=== PATIENT | male | born 1955 | race Caucasian/White ===

== ENCOUNTER 2020-09-20 17:16 | Emergency (ER) | payer BC, OTHER ==
[~2020-09-20] VITALS: Ht 203.2 cm; Wt 127.0 kg
[2020-09-20] MEDS ORDERED: MORPHINE SULFATE INJECTION 2 MG/ML SYRG IM ONE (21:45)
[2020-09-20] MEDS ORDERED: ONDANSETRON ODT 4 MG TAB PO ONE (21:45)
[2020-09-20 22:20] VITALS: BP 110/53
== END 2020-09-20 23:54 | disposition home or self-care (01) ==
LOC: ER 17:16
DX: S63.501A Unspecified sprain of right wrist, initial encounter (principal); S86.911A Strain of unspecified muscle(s) and tendon(s) at lower leg level, right leg, initial encounter; S83.91XA Sprain of unspecified site of right knee, initial encounter; S30.0XXA Contusion of lower back and pelvis, initial encounter; W18.39XA Other fall on same level, initial encounter; Y93.89 Activity, other specified; Y92.89 Other specified places as the place of occurrence of the external cause; Y99.8 Other external cause status
CPT/HCPCS: 29125; 29505; 72070; 73070; 73110; 73560; 96372; 99284; J2270; Q0162

== ENCOUNTER 2023-01-21 20:49 | Inpatient (IN) | payer MEDICARE, OTHER ==
[~2023-01-21] VITALS: Ht 193 cm; Wt 122.6 kg
[2023-01-21 21:25] LABS: Basophils # (auto) 0 10 ^3/uL (0-0.2); Eosinophils # (auto) 0.3 10 ^3/uL (0-0.8); Lymphocytes # (auto) 1.6 10 ^3/uL (0.4-5.4); Nucleated Red Blood Cells % 0.1 %
[2023-01-21 21:27] LABS: Basophils % (auto) 0.5 % (0.0-2.0); Eosinophils % (auto) 4.2 % (0.0-7.0); Hematocrit 38.4 % (41.0-53.0); Hemoglobin 13.1 g/dL (13.5-17.5); Lymphocytes % (auto) 24.9 % (10.0-50.0); Mean Corpuscular Hemoglobin 35.7 pg (28.0-32.0); Mean Corpuscular Volume 105.1 fL (80.0-100.0); Monocytes # (auto) 0.6 10 ^3/uL (0-1.3); Neutrophils # (auto) 3.9 10 ^3/uL (1.6-8.6); Neutrophils % (auto) 60.4 % (37.0-80.0); Red Blood Cells 3.65 10^6/uL (4.5-5.90); Red Cell Distribution Width 12.7 % (11.8-14.3); White Blood Cell 6.4 10^3/uL (4.4-10.8)
[2023-01-21 21:41] LABS: Potassium 4.6 mmol/L (3.5-5.1)
[2023-01-21 21:44] LABS: BUN/Creatinine Ratio 10.2 (10.0-20.0); INR 1.09 (0.9-1.15); Partial Thromboplastin Time 32.7 SEC (24.5-34.5)
[2023-01-21 21:46] LABS: Bilirubin, Total 0.6 mg/dL (0.2-1.0); Total Protein 5.7 g/dL (6.4-8.2)
[2023-01-21 22:00] VITALS: O2SAT 95
[2023-01-22] MEDS ORDERED: SODIUM CHLORIDE 0.9% 1,000 ML IV ONE (00:15)
[2023-01-22] MEDS ORDERED: KETOROLAC TROMETH 30 MG/ML 1ML VIAL IV ONE (00:15)
[2023-01-22] MEDS ORDERED: NEOMYCIN-BACITRACIN-POLYM UNITDOSE PKG TOP OINT TOP ONE (01:30)
[2023-01-22 02:25] LABS: Urine WBC None Seen /hpf (0 - 3)
[2023-01-22] MEDS ORDERED: MORPHINE SULFATE INJ 2 MG/ml SYRG IV PRN (02:30)
[2023-01-22] MEDS ORDERED: ONDANSETRON HCL 4 MG/2 ML VIAL IV PRN (02:30)
[2023-01-22] MEDS ORDERED: DOCUSATE SOD 100 MG CAP PO PRN (02:30)
[2023-01-22] MEDS ORDERED: NITROGLYCERIN 0.4 MG SL TAB SL PRN (02:30)
[2023-01-22] MEDS ORDERED: ACETAMINOPHEN 325 MG TAB PO PRN (02:30)
[2023-01-22 02:37] LABS: Urine Bacteria NONE SEEN /hpf (None Seen); Urine Blood Negative /uL (Negative); Urine Specific Gravity 1.003 (1.001-1.035)
[2023-01-22] MEDS: MORPHINE SULFATE INJ 2 MG/ml SYRG IV PRN ×2 (02:41→18:03)
[2023-01-22] MEDS: SODIUM CHLORIDE 0.9% 1,000 ML IV SCH ×2 (02:41→21:49)
[2023-01-22 05:54] LABS: Basophils # (auto) 0 10 ^3/uL (0-0.2); Eosinophils # (auto) 0.2 10 ^3/uL (0-0.8); Eosinophils % (auto) 4.6 % (0.0-7.0); Hemoglobin 13.2 g/dL (13.5-17.5); Lymphocytes # (auto) 1.2 10 ^3/uL (0.4-5.4); Neutrophils # (auto) 2.9 10 ^3/uL (1.6-8.6); Nucleated Red Blood Cells % 0.1 %; Red Cell Distribution Width 12.9 % (11.8-14.3)
[2023-01-22 05:57] LABS: Basophils % (auto) 0.3 % (0.0-2.0); Hematocrit 38.2 % (41.0-53.0); Lymphocytes % (auto) 24.7 % (10.0-50.0); Mean Corpuscular Hemoglobin 36.1 pg (28.0-32.0); Mean Corpuscular Hgb Conc. 34.5 g/dL (32.0-36.0); Mean Corpuscular Volume 104.6 fL (80.0-100.0); Monocytes # (auto) 0.6 10 ^3/uL (0-1.3); Monocytes % (auto) 11.3 % (0.0-12.0); Neutrophils % (auto) 59.1 % (37.0-80.0); Red Blood Cells 3.65 10^6/uL (4.5-5.90)
[2023-01-22] MEDS ORDERED: DABI150C5 PO (06:02)
[2023-01-22] MEDS ORDERED: HYDR-3682 PO (06:02)
[2023-01-22] MEDS ORDERED: ALPR0.5T7 PO (06:02)
[2023-01-22] MEDS ORDERED: DULO20CA PO (06:02)
[2023-01-22] MEDS ORDERED: TRAZ1TAB12 PO (06:02)
[2023-01-22] MEDS ORDERED: BENA40TA70 PO (06:02)
[2023-01-22] MEDS ORDERED: ALLO100T PO (06:02)
[2023-01-22] MEDS ORDERED: HYDR-4798 PO (06:02)
[2023-01-22] MEDS ORDERED: METO25TA5 PO (06:02)
[2023-01-22 06:20] LABS: Calcium 8.6 mg/dL (8.5-10.1); Potassium 4.4 mmol/L (3.5-5.1)
[2023-01-22 06:22] LABS: BUN/Creatinine Ratio 14.4 (10.0-20.0)
[2023-01-22 06:25] LABS: Bilirubin, Total 0.8 mg/dL (0.2-1.0)
[2023-01-22] MEDS: NEOMYCIN-BACITRACIN-POLYM 15GM TOP OINT TOP SCH ×3 (07:02→21:59)
[2023-01-22 07:15] VITALS: PULSE 70; RESP 15; O2SAT 95
[2023-01-22] MEDS: HYDROcodone-ACET 5/325MG TAB PO PRN (09:18)
[2023-01-22] MEDS: METOPROLOL TARTRATE 25 MG TAB PO SCH ×3 (10:20→22:00)
[2023-01-22 17:40] VITALS: PULSE 110; RESP 20; O2SAT 94
[2023-01-22 20:00] VITALS: BP 140/81; PULSE 68; PULSE 97; RESP 14; TEMP 98.4; O2SAT 97
[2023-01-22] MEDS: traZODone HCL 50 MG TAB PO SCH (21:42)
[2023-01-22] MEDS: ALPRAZolam 0.5 MG TAB PO SCH (21:42)
[2023-01-22 22:00] VITALS: BP 140/81; PULSE 68; RESP 14; TEMP 98.4; O2SAT 97
[2023-01-22 22:13] VITALS: BP 140/81; PULSE 68; RESP 14; TEMP 98.4
[2023-01-23] VITALS (8 sets, daily range): BP systolic 117–138; BP diastolic 67–83; PULSE 56–66; RESP 14–24; TEMP 96.7–98.4; O2SAT 98–100
[2023-01-23] MEDS: NEOMYCIN-BACITRACIN-POLYM 15GM TOP OINT TOP SCH ×3 (05:40→21:37)
[2023-01-23 06:02] LABS: Basophils # (auto) 0 10 ^3/uL (0-0.2); Eosinophils # (auto) 0.2 10 ^3/uL (0-0.8); Monocytes # (auto) 0.6 10 ^3/uL (0-1.3); Neutrophils # (auto) 3.3 10 ^3/uL (1.6-8.6); Nucleated Red Blood Cells % 0.1 %; White Blood Cell 5.4 10^3/uL (4.4-10.8)
[2023-01-23 06:05] LABS: Basophils % (auto) 0.6 % (0.0-2.0); Hematocrit 38.7 % (41.0-53.0); Hemoglobin 13.1 g/dL (13.5-17.5); Lymphocytes # (auto) 1.2 10 ^3/uL (0.4-5.4); Lymphocytes % (auto) 22.1 % (10.0-50.0); Mean Corpuscular Hemoglobin 35.5 pg (28.0-32.0); Mean Corpuscular Hgb Conc. 33.9 g/dL (32.0-36.0); Mean Corpuscular Volume 104.6 fL (80.0-100.0); Monocytes % (auto) 11.4 % (0.0-12.0); Neutrophils % (auto) 61.9 % (37.0-80.0)
[2023-01-23 06:15] LABS: Potassium 4.8 mmol/L (3.5-5.1)
[2023-01-23 06:25] LABS: Albumin 2.9 g/dL (3.4-5.0); BUN/Creatinine Ratio 13.2 (10.0-20.0); Bilirubin, Total 1.2 mg/dL (0.2-1.0); Total Protein 5.9 g/dL (6.4-8.2)
[2023-01-23] MEDS: DULoxetine HCL 30 MG CAP PO SCH (09:53)
[2023-01-23] MEDS: ALPRAZolam 0.5 MG TAB PO SCH ×2 (09:53→21:36)
[2023-01-23] MEDS: METOPROLOL TARTRATE 25 MG TAB PO SCH ×4 (09:54→21:44)
[2023-01-23] MEDS: MORPHINE SULFATE INJ 2 MG/ml SYRG IV PRN (10:03)
[2023-01-23] MEDS: SODIUM CHLORIDE 0.9% 1,000 ML IV SCH (12:31)
[2023-01-23] MEDS ORDERED: LORazepam 2MG/ML-1ML VIAL IV PRN (13:45)
[2023-01-23] MEDS: HYDROcodone-ACET 5/325MG TAB PO PRN (17:08)
[2023-01-23] MEDS: traZODone HCL 50 MG TAB PO SCH (21:36)
[2023-01-24] VITALS (7 sets, daily range): BP systolic 128–139; BP diastolic 77–84; PULSE 60–64; RESP 14–19; TEMP 98–98.4; O2SAT 96–99
[2023-01-24] MEDS: HYDROcodone-ACET 5/325MG TAB PO PRN ×3 (05:08→19:55)
[2023-01-24] MEDS: SODIUM CHLORIDE 0.9% 1,000 ML IV SCH (05:12)
[2023-01-24] MEDS: NEOMYCIN-BACITRACIN-POLYM 15GM TOP OINT TOP SCH ×3 (05:18→21:29)
[2023-01-24] MEDS: ALPRAZolam 0.5 MG TAB PO SCH ×2 (09:51→21:26)
[2023-01-24] MEDS: DULoxetine HCL 30 MG CAP PO SCH (09:51)
[2023-01-24] MEDS: METOPROLOL TARTRATE 25 MG TAB PO SCH ×2 (09:52→21:26)
[2023-01-24] MEDS ORDERED: ALLOPURINOL 100 MG TAB PO ONE (10:30)
[2023-01-24] MEDS ORDERED: LORazepam 2MG/ML-1ML VIAL IV PRN ×2 (10:30→22:15)
[2023-01-24] MEDS: FOLIC ACID 1 MG, MULTIPLE VITAMIN 10 ML, MAGNESIUM SULF SDV 50% 8 MEQ, THIAMINE INJ 100... INJ SCH ×5 (13:49)
[2023-01-24] MEDS: traZODone HCL 50 MG TAB PO SCH (21:26)
[2023-01-24] MEDS: DABIGATRAN 75 MG CAP PO SCH (21:26)
[2023-01-25] VITALS (7 sets, daily range): BP systolic 128–135; BP diastolic 74–90; PULSE 58–72; RESP 14–22; TEMP 97.8–98.5; O2SAT 96–100
[2023-01-25] MEDS: NEOMYCIN-BACITRACIN-POLYM 15GM TOP OINT TOP SCH ×3 (06:12→22:55)
[2023-01-25] MEDS: HYDROcodone-ACET 5/325MG TAB PO PRN (09:02)
[2023-01-25] MEDS: ALLOPURINOL 100 MG TAB PO SCH (11:09)
[2023-01-25] MEDS: METOPROLOL TARTRATE 25 MG TAB PO SCH ×2 (11:09→22:55)
[2023-01-25] MEDS: DULoxetine HCL 30 MG CAP PO SCH (11:09)
[2023-01-25] MEDS: ALPRAZolam 0.5 MG TAB PO SCH ×2 (11:09→22:55)
[2023-01-25] MEDS: DABIGATRAN 75 MG CAP PO SCH ×2 (11:10→22:55)
[2023-01-25] MEDS: FOLIC ACID 1 MG, MULTIPLE VITAMIN 10 ML, MAGNESIUM SULF SDV 50% 8 MEQ, THIAMINE INJ 100... INJ SCH ×5 (13:35)
[2023-01-25] MEDS: HYDROcodone-ACET 10/325MG TAB PO PRN (19:50)
[2023-01-25] MEDS: traZODone HCL 50 MG TAB PO SCH (22:55)
[2023-01-26 05:00] VITALS: BP 134/86; PULSE 59; RESP 16; TEMP 98.6; O2SAT 95
[2023-01-26] MEDS: NEOMYCIN-BACITRACIN-POLYM 15GM TOP OINT TOP SCH ×3 (05:45→22:00)
[2023-01-26 09:00] VITALS: BP 140/91; PULSE 64; RESP 18; TEMP 97.9; O2SAT 99
[2023-01-26] MEDS: DULoxetine HCL 30 MG CAP PO SCH (09:21)
[2023-01-26] MEDS: HYDROcodone-ACET 10/325MG TAB PO PRN ×2 (09:21→22:24)
[2023-01-26] MEDS: ALLOPURINOL 100 MG TAB PO SCH (09:21)
[2023-01-26] MEDS: ALPRAZolam 0.5 MG TAB PO SCH ×2 (09:21→22:09)
[2023-01-26] MEDS: METOPROLOL TARTRATE 25 MG TAB PO SCH ×2 (09:22→22:10)
[2023-01-26 13:00] VITALS: BP 135/88; PULSE 61; RESP 19; TEMP 98; O2SAT 98
[2023-01-26] MEDS: THIAMINE HCL 100 MG TAB PO SCH (13:46)
[2023-01-26] MEDS: FLUDROCORTISONE ACETATE 0.1 MG TAB PO SCH (13:46)
[2023-01-26] MEDS: FOLIC ACID 1 MG TAB PO SCH (13:47)
[2023-01-26] MEDS: DABIGATRAN 75 MG CAP PO SCH ×2 (13:47→22:10)
[2023-01-26 17:00] VITALS: BP 132/64; PULSE 69; RESP 19; TEMP 98.1; O2SAT 97
[2023-01-26 20:00] VITALS: PULSE 63
[2023-01-26] MEDS: traZODone HCL 50 MG TAB PO SCH (22:10)
[2023-01-26 22:23] VITALS: BP 130/73; PULSE 59; RESP 18; TEMP 98.1; O2SAT 95
[2023-01-27 05:02] VITALS: BP 136/76; PULSE 60; RESP 18; TEMP 97.5; O2SAT 97
[2023-01-27] MEDS: NEOMYCIN-BACITRACIN-POLYM 15GM TOP OINT TOP SCH ×2 (06:10→13:40)
[2023-01-27 08:00] VITALS: BP 134/81; PULSE 59; PULSE 64; RESP 18; RESP 20; TEMP 98.1; O2SAT 96
[2023-01-27 09:00] VITALS: BP 134/81; PULSE 59; RESP 18; TEMP 98.1; O2SAT 96
[2023-01-27] MEDS: ALPRAZolam 0.5 MG TAB PO SCH (10:00)
[2023-01-27] MEDS: THIAMINE HCL 100 MG TAB PO SCH (10:00)
[2023-01-27] MEDS: DABIGATRAN 75 MG CAP PO SCH (10:00)
[2023-01-27] MEDS: FLUDROCORTISONE ACETATE 0.1 MG TAB PO SCH (10:00)
[2023-01-27] MEDS: ALLOPURINOL 100 MG TAB PO SCH (10:00)
[2023-01-27] MEDS: DULoxetine HCL 30 MG CAP PO SCH (10:00)
[2023-01-27] MEDS: FOLIC ACID 1 MG TAB PO SCH (10:00)
[2023-01-27] MEDS: METOPROLOL TARTRATE 25 MG TAB PO SCH (10:00)
[2023-01-27] MEDS ORDERED: FLU01T PO (10:17)
[2023-01-27 13:17] VITALS: BP 128/89; PULSE 60
== END 2023-01-27 18:00 | disposition home or self-care (01) | DRG 312 ==
LOC: ER 20:49 → EDBD 20:49 → UNDOADMIN 01-22 02:21 → OVERFLOW 01-22 02:21 → TELE 01-22 02:39 → TELE-EAST 01-22 16:34
PROVIDERS: ADMIT Internal Medicine; ATTEND Internal Medicine
DX: I95.1 Orthostatic hypotension (principal); D68.69 Other thrombophilia; F10.239 Alcohol dependence with withdrawal, unspecified; I48.92 Unspecified atrial flutter; S01.01XA Laceration without foreign body of scalp, initial encounter; R26.81 Unsteadiness on feet; E66.9 Obesity, unspecified; F17.200 Nicotine dependence, unspecified, uncomplicated; G62.9 Polyneuropathy, unspecified; G89.29 Other chronic pain; W18.39XA Other fall on same level, initial encounter; I48.91 Unspecified atrial fibrillation; Z79.52 Long term (current) use of systemic steroids; Z82.49 Family history of ischemic heart disease and other diseases of the circulatory system; Z95.0 Presence of cardiac pacemaker; Z68.31 Body mass index [BMI] 31.0-31.9, adult; Y93.89 Activity, other specified; Y92.89 Other specified places as the place of occurrence of the external cause; Y99.8 Other external cause status
CPT/HCPCS: 12002; 36415; 70450; 71250; 72125; 72141; 72148; 74176; 80053; 80061; 81001; 83036; 83735; 83880; 84155; 84165; 84443; 84484; 85025; 85610; 85730; 93005; 93306; 93886; 96361; 96374; 97110; 97116; 97163; 97530; G0378; J1885